=== PATIENT | female | born 1955 | race Two or more races ===

== ENCOUNTER 2024-06-02 05:43 | Inpatient (IN) | payer OTHER, MEDICAID ==
[~2024-06-02] VITALS: Ht 160 cm; Wt 85.1 kg
[2024-06-02 06:30] VITALS: PULSE 112; RESP 16; O2SAT 95
--- NOTE | 2024-06-02 06:43 | ED.PDOC ---
SOB-HPI HPI Comments 68Y F with PMHx HTN presents to ED for chief complaint SOB x1hr with chest pressure/heaviness and bilateral hand numbness/tingling. Pt states BP at home was 170/103 and then she took her BP meds at 0600. Upon ED arrival, BP was 119/64 and pt was in a fib. Pt was told she has an irregular HR by PCP and takes Aspirin. Pt is not on blood thinners. Pt states SOB feels better now but chest heaviness is still present. Pt denies alcohol, illicit drug, and tobacco use. Allergies include Cipro. Chief Complaint: Shortness of Breath Time Seen by MD: 06:27 Reviewed notes: Medications, Allergies Information Source: Patient Mode of Arrival: Ambulatory Severity: Mild Timing: Hours Duration: Since onset Context: At Rest PE Risk Factors: None History of: None Modifying Factors: Nothing Associated Signs and Symptoms: Chest Pain, Hands (numbness) Quality: Pressure, Heavy Radiation: No Radiation Location: Substernal Past Medical History PAST MEDICAL HISTORY: HTN Surgical History: Denies all surgeries COMPO CASTER History: Denies all COMPO CASTER Hx Family History Family History: Unknown Social History Smoker: Non-Smoker Alcohol: Denies ETOH Use Drugs: Denies Drug Use Lives In: Home Constitutional: denies: chills, diaphoresis, fatigue, fever, malaise, sweats, weakness, others EENTM: denies: blurred vision, double vision, ear bleeding, ear discharge, ear drainage, ear pain, ear ringing, eye pain, eye redness, hearing loss, mouth pain, mouth swelling, nasal discharge, nose bleeding, nose congestion, nose pain, photophobia, tearing, throat pain, throat swelling, voice changes, others Respiratory: reports: shortness of breath; denies: cough, hemoptysis, orthopnea, SOB at rest, SOB with excertion, stridor, wheezing, others Cardiovascular: reports: chest pain; denies: dizzy spells, diaphoresis, Dyspnea on exertion, edema, irregular heart beat, left arm pain, lightheadedness, palpitations, PND, syncope, others Gastrointestinal: denies: abdomen distended, abdominal pain, blood streaked bowels, constipated, diarrhea, dysphagia, difficulty swallowing, hematemesis, melena, nausea, poor appetite, poor fluid intake, rectal bleeding, rectal pain, vomiting, others Genitourinary: denies: abnormal vagina bleeding, burning, dyspareunia, dysuria, flank pain, frequency, hematuria, incontinence, pain, , vagina discharge, urgency, others Neurological: reports: numbness (bilteral hands); denies: dizziness, fainting, headache, left sided numbness, left sided weakness, paresthesia, pre-existing deficit, right sided numbness, right sided weakness, seizure, speech problems, tingling, tremors, weakness, others Musculoskeletal: denies: back pain, gout, joint pain, joint swelling, muscle pain, muscle stiffness, neck pain, others Integumetry: denies: bruises, change in color, change in hair/nails, dryness, laceration, lesions, lumps, rash, wounds, others Allergic/Immunocompromised: denies: Difficulty Healing, Frequent Infections, Hives, Itching, others Hematologic/Lymphatic: denies: anemia, blood clots, easy bleeding, easy bruising, swollen glands, others Endocrine: denies: excessive hunger, excessive sweating, excessive thirst, excessive urination, flushing, intolerance to cold, intolerance to heat, unexplained weight gain, unexplained weight loss, others Psychiatric: denies: anxiety, bipolar disorder, depression, hopeless, panic disorder, schizophrenia, sleepless, suicidal, others All Other Systems: Reviewed and Negative Physical Exam General Appearance: No Apparent Distress, Normal HEENT: Normal ENT Inspection, Pharynx Normal, TMs Normal Neck: Full Range of Motion, Non-Tender, Normal, Normal Inspection Respiratory: Chest Non-Tender, Lungs Clear, No Accessory Muscle Use, No Respiratory Distress, Normal Breath Sounds Cardiovascular: Irregular, No Edema, No JVD, No Murmur, No Gallop Breast Exam: Deferred Gastrointestinal: No Organomegaly, Non Tender, No Pulsatile Mass, Normal Bowel Sounds, Soft Genitalia: Deferred Pelvic: Deferred Rectal: Deferred Extremities: No calf tenderness, Normal capillary refill, Normal inspection, Normal range of motion, Non-tender, No pedal edema Musculoskeletal : Apperance: Normal Neurologic: Alert, 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 Was a procedure done?: No Differential Dx Differential Diagnosis: Anxiety, Asthma, Bronchitis, Cardiogenic Shock, CHF, COPD, Dysrhythmia, Hypertension, Hyperventilation, Hyponatremia, Myocardial infarction, Panic Attack, Pneumonia, Pneumothorax, PSVT, Pulmonary Embolism, Respiratory Distress, Other (arrhthmias) X-Ray, Labs, Meds, VS Vital Signs Date Time Temp Pulse Resp B/P (MAP) Pulse Ox O2 Delivery O2 Flow Rate FiO2 06/02/24 08:00 84 11 96 Room Air* 0 21 06/02/24 08:00 88 11 97/64 (75) 96 06/02/24 07:23 86 06/02/24 06:43 123 06/02/24 06:30 98.0 112 16 143/82 (102) 95 98.0 06/02/24 06:30 112 16 95 Room Air* 0 21 06/02/24 06:24 98.6 100 16 143/82 (102) 95 98.6 06/02/24 05:59 93 06/02/24 05:55 97.7 108 19 119/64 (82) 98 Lab Test 06/02/24 07:55 06/02/24 06:23 Range/Units Troponin I High Sensitivity Pending < 3 L </=34 ng/L White Blood Count 5.1 4.4-10.8 10^3/uL Red Blood Count 4.64 4.0-5.20 10^6/uL Hemoglobin 14.9 12.2-16.2 g/dL Hematocrit 43.9 36.0-46.0 % Mean Corpuscular Volume 94.4 80.0-100.0 fL Mean Corpuscular Hemoglobin 32.2 H 28.0-32.0 pg Mean Corpuscular Hemoglobin Concent 34.1 32.0-36.0 g/dL Red Cell Distribution Width 13.4 11.8-14.3 % Platelet Count 194 140-450 10^3/uL Mean Platelet Volume 10.0 6.9-10.8 fL Neutrophils (%) (Auto) 55.2 37.0-80.0 % Lymphocytes (%) (Auto) 31.4 10.0-50.0 % Monocytes (%) (Auto) 9.4 0.0-12.0 % Eosinophils (%) (Auto) 2.7 0.0-7.0 % Basophils (%) (Auto) 1.3 0.0-2.0 % Neutrophils # (Auto) 2.8 1.6-8.6 10 ^3/uL Lymphocytes # (Auto) 1.6 0.4-5.4 10 ^3/uL Monocytes # (Auto) 0.5 0-1.3 10 ^3/uL Eosinophils # (Auto) 0.1 0-0.8 10 ^3/uL Basophils # (Auto) 0.1 0-0.2 10 ^3/uL Nucleated Red Blood Cells 0.1 % Sodium Level 139 136-145 mmol/L Potassium Level 4.0 3.5-5.1 mmol/L Chloride Level 107 98-107 mmol/L Carbon Dioxide Level 25 20-31 mmol/L Anion Gap 7 5-15 Blood Urea Nitrogen 15 9-23 mg/dL Creatinine 0.59 0.550-1.02 mg/dL Glomerular Filtration Rate Calc 98 >90 mL/min BUN/Creatinine Ratio 25.4 H 10.0-20.0 Serum Glucose 112 H 74-106 mg/dL Calcium Level 10.4 8.7-10.4 mg/dL Current Medications Medications (Trade) Dose Ordered Sig/Pauline Route Start Time Stop Time Status Last Admin Enoxaparin Sodium (Lovenox) 90 mg ONCE ONCE SC 06/02/24 06:45 06/02/24 06:46 DC 06/02/24 07:02 Diltiazem HCl (Cardizem Injection) 15 mg ONCE ONCE IV 06/02/24 07:00 06/02/24 07:01 DC 06/02/24 07:02 Time of 1ST Reevaluation: 06:57 Reevaluation 1ST: Unchanged Time of 2ND Reevaluation: 07:07 Reevaluation 2ND: Improved (HR now afib 76, after cardizem) Time of 3RD Reevaluation: 08:15 Reevaluation 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 i assessed this patient, formulated a plan of care, communicated with medical personnel,reveiwed data and results,andconversed with recruiting and selection consultant, reassessed the patient's condition and response to treatments. total time includde at [facility] 50% face-face interactions and does not include any procedures Stability Stability form required: No Heart Score Heart Score: Heart Score Response (Comments) Value History Highly Suspicious 2 EKG Repolarization Disturb 1 Age >65 2 Risk Factors 1 or 2 risk factors 1 Troponin Normal limit 0 Total 6 I personally scribed for MARQUIS ARMAS MD ([email or web address]) on 06/02/24 at 06:43. Electronically submitted by La You ([email or web address]). MARQUIS ARMAS MD Jun 02, 2024 06:43
[2024-06-02 06:54] LABS: Basophils # (auto) 0.1 10 ^3/uL (0-0.2); Basophils % (auto) 1.3 % (0.0-2.0); Eosinophils # (auto) 0.1 10 ^3/uL (0-0.8); Eosinophils % (auto) 2.7 % (0.0-7.0); Hematocrit 43.9 % (36.0-46.0); Hemoglobin 14.9 g/dL (12.2-16.2); Lymphocytes # (auto) 1.6 10 ^3/uL (0.4-5.4); Lymphocytes % (auto) 31.4 % (10.0-50.0); Mean Corpuscular Hemoglobin 32.2 pg (28.0-32.0); Mean Corpuscular Hgb Conc. 34.1 g/dL (32.0-36.0); Mean Corpuscular Volume 94.4 fL (80.0-100.0); Monocytes # (auto) 0.5 10 ^3/uL (0-1.3); Monocytes % (auto) 9.4 % (0.0-12.0); Neutrophils # (auto) 2.8 10 ^3/uL (1.6-8.6); Neutrophils % (auto) 55.2 % (37.0-80.0); Nucleated Red Blood Cells % 0.1 %; Platelet Count (auto) 194 10^3/uL (140-450); Red Blood Cells 4.64 10^6/uL (4.0-5.20); Red Cell Distribution Width 13.4 % (11.8-14.3); White Blood Cell 5.1 10^3/uL (4.4-10.8)
[2024-06-02] MEDS: ENOXAPARIN SOD 100 MG/1 ML SYRINGE SC ONE (07:02)
[2024-06-02] MEDS: dilTIAZem 25 MG/5 ML VIAL IV ONE (07:02)
[2024-06-02 07:03] LABS: Chloride 107 mmol/L (98-107); Sodium 139 mmol/L (136-145)
[2024-06-02 07:04] LABS: Anion Gap 7 (5-15); Carbon Dioxide 25 mmol/L (20-31)
[2024-06-02 07:05] LABS: Calcium 10.4 mg/dL (8.7-10.4)
[2024-06-02 07:10] LABS: BUN/Creatinine Ratio 25.4 (10.0-20.0); Blood Urea Nitrogen 15 mg/dL (9-23); Glucose 112 mg/dL (74-106)
[2024-06-02 08:00] VITALS: PULSE 84; RESP 11; O2SAT 96
--- NOTE | 2024-06-02 08:46 | DVH ---
CHEST RADIOGRAPH Indication:sob Technique: Single frontal view of the chest was obtained Comparison: None FINDINGS: Lines and Tubes: None Lungs: No focal consolidation. Pleura: No effusion. No pneumothorax. Cardiomediastinal contours: Unremarkable Bones: No acute osseous abnormality. IMPRESSION: 1. No acute cardiopulmonary disease.
[2024-06-02] MEDS ORDERED: HYDROcodone-ACET 5/325MG TAB PO PRN (10:45)
[2024-06-02] MEDS ORDERED: MORPHINE SULFATE INJ 2 MG/ml SYRG IV PRN ×2 (10:45)
[2024-06-02] MEDS ORDERED: ONDANSETRON HCL 4 MG/2 ML VIAL IV PRN (10:45)
[2024-06-02] MEDS ORDERED: NITROGLYCERIN 0.4 MG SL TAB SL PRN (10:45)
[2024-06-02] MEDS ORDERED: ASPI-325 PO (10:50)
[2024-06-02] MEDS ORDERED: AMLO1TAB21 PO (10:50)
[2024-06-02] MEDS ORDERED: ATOR20TA50 PO (10:50)
[2024-06-02] MEDS ORDERED: HYDR25TA5 PO (10:50)
[2024-06-02] MEDS ORDERED: LOS25T PO (10:50)
--- NOTE | 2024-06-02 10:56 | DVHHP2 ---
History of Present Illness Reason for Visit: Shortness of breath History of Present Illness This 68 year old female presents in the ED with a chief complaint of chest pressure pain associated with shortness of breath, bilateral hand numbness and tingling that started this morning. The patient reports symptoms is associated with palpitations and uncontrolled BP leading to ED visit. past medical history of hypertension and atrial fibrillation. The patient reports under cardiology care of Dr. Holden Cardona. She had a nuclear test six years ago with normal findings. Past Medical History As stated in HPI Past Surgical History Denies Family History Reviewed, non-contributory to the management of this case. Past Social History The patient lives at home, denies smoking, alcohol or illicit drugs abuse. Review of Systems Constitutional: Yes: Malaise; No: Fever, Chills, Sweats, Weakness, Other Eyes: No: Pain, Vision change, Conjunctivae inflammation, Eyelid inflammation, Other, Redness ENT: No: Ear pain, Ear discharge, Nose pain, Nose discharge, Nose congestion, Mouth pain, Mouth swelling, Throat pain, Throat swelling, Other Respiratory: Shortness of breath; No: Cough, Dry, SOB with excertion, Wheezing, Hemoptysis, Pleuritic Pain, Sputum, Wheezing, Other Cardiovascular: Chest Pain, Palpitations; No: Orthopnea, Paroxysmal Noc. Dyspnea, Edema, Lt Headedness, Other Gastrointestinal: No: Nausea, Vomiting, Abdominal Pain, Diarrhea, Constipation, Melena, Hematochezia, Other Genitourinary: No Dysuria, No Frequency, No Incontinence, No Hematuria, No Retention, No Other Musculoskeletal: No: other, neck pain, shoulder pain, arm pain, back pain, hand pain, leg pain, foot pain Skin: No: Rash, Lesions, Jaundice, Bruising, Other Neurological: No: Weakness, Numbness, Incoordination, Change in speech, Confusion, Seizures, Other Allergies: Coded Allergies: Ciprofloxacin (Verified Allergy, Unknown, 06/02/24) Medications Current Medications Medications Dose Ordered Sig/Pauline Route Start Time Stop Time Status Last Admin Dose Admin Acetaminophen/ Hydrocodone Bitart 1 tab Q4HP PRN PO 06/02/24 10:45 UNV Ondansetron HCl 4 mg Q4HP PRN IV 06/02/24 10:45 UNV Enoxaparin Sodium 40 mg DAILY SC 06/03/24 10:00 UNV Morphine Sulfate 2 mg Q4HPRN PRN IV 06/02/24 10:45 UNV Nitroglycerin 0.4 mg Q5MINP PRN SL 06/02/24 10:45 UNV Morphine Sulfate 2 mg Q30M PRN IV 06/02/24 10:45 UNV Exam Vital Signs Vital Signs Date Time Temp Pulse Resp B/P (MAP) Pulse Ox O2 Delivery O2 Flow Rate FiO2 06/02/24 10:32 63 13 101/51 (68) 96 06/02/24 08:00 Room Air* 0 21 06/02/24 06:30 98.0 98.0 General Appearance: Alert, Oriented X3, mild distress HEENT: Atraumatic, PERRLA, EOMI Respiratory: Clear to auscultation, Normal air movement Cardiovascular: Other (Atrial fibrillation rate is controlled) Abdominal: Normal bowel sounds, Soft, No tenderness Extremities: No clubbing, No cyanosis, No edema, Normal pulses Skin: No rashes, No breakdown, No significant lesion Neuro: Normal gait, Normal speech, Strength at 5/5 X4 ext, Normal tone Psych/Mental Status: Mental status NL Labs/Xrays Labs Test 06/02/24 09:40 06/02/24 06:23 Range/Units Troponin I High Sensitivity < 3 L </=34 ng/L White Blood Count 5.1 4.4-10.8 10^3/uL Red Blood Count 4.64 4.0-5.20 10^6/uL Hemoglobin 14.9 12.2-16.2 g/dL Hematocrit 43.9 36.0-46.0 % Mean Corpuscular Volume 94.4 80.0-100.0 fL Mean Corpuscular Hemoglobin 32.2 H 28.0-32.0 pg Mean Corpuscular Hemoglobin Concent 34.1 32.0-36.0 g/dL Red Cell Distribution Width 13.4 11.8-14.3 % Platelet Count 194 140-450 10^3/uL Mean Platelet Volume 10.0 6.9-10.8 fL Neutrophils (%) (Auto) 55.2 37.0-80.0 % Lymphocytes (%) (Auto) 31.4 10.0-50.0 % Monocytes (%) (Auto) 9.4 0.0-12.0 % Eosinophils (%) (Auto) 2.7 0.0-7.0 % Basophils (%) (Auto) 1.3 0.0-2.0 % Neutrophils # (Auto) 2.8 1.6-8.6 10 ^3/uL Lymphocytes # (Auto) 1.6 0.4-5.4 10 ^3/uL Monocytes # (Auto) 0.5 0-1.3 10 ^3/uL Eosinophils # (Auto) 0.1 0-0.8 10 ^3/uL Basophils # (Auto) 0.1 0-0.2 10 ^3/uL Nucleated Red Blood Cells 0.1 % Sodium Level 139 136-145 mmol/L Potassium Level 4.0 3.5-5.1 mmol/L Chloride Level 107 98-107 mmol/L Carbon Dioxide Level 25 20-31 mmol/L Anion Gap 7 5-15 Blood Urea Nitrogen 15 9-23 mg/dL Creatinine 0.59 0.550-1.02 mg/dL Glomerular Filtration Rate Calc 98 >90 mL/min BUN/Creatinine Ratio 25.4 H 10.0-20.0 Serum Glucose 112 H 74-106 mg/dL Calcium Level 10.4 8.7-10.4 mg/dL PROCEDURE(s): CXRP - CHEST PORTABLE REASON: sob ORDER NUMBER(s): [id number], ACCESSION NUMBER(s): [id number] CHEST RADIOGRAPH Indication:sob Technique: Single frontal view of the chest was obtained Comparison: None FINDINGS: Lines and Tubes: None Lungs: No focal consolidation. Pleura: No effusion. No pneumothorax. Cardiomediastinal contours: Unremarkable Bones: No acute osseous abnormality. IMPRESSION: 1. No acute cardiopulmonary disease. Assessment/Plan Assessment/Plan # AFib with RVR, now rate is controlled Admit to telemetry unit Rate control with metoprolol 50mg bid Chads Vasc score 3 - therapeutic Lovenox Cardiology consult with Dr. Dulce Maria Cardona Monitor electrolytes and replete as needed Check TSH # rule out ACS asa, statins Chest pain protocol Echo Card consult # hypertension Continue with amlodipine, losartan, hctz Check lipid panel # obesity Lifestyle modification counseled with diet and regular exercise DVT prophylaxis Plan discussed with: Patient My Orders Orders - JARED YOUNG Procedure Category Date Status Time Admit ADMIT 06/02/24 Transmitted 10:45 Code Status CODE 06/02/24 Transmitted 10:45 Hydrocodone-Acet PHA 06/02/24 Logged 5/325mg Tab ([place] 10:45 Ondansetron Hcl PHA 06/02/24 Logged (Zofran) 10:45 Enoxaparin Sodium PHA 06/03/24 Logged (Lovenox) 10:00 Complete Blood Count LAB 06/03/24 Verified 04:00 Comprehensive LAB 06/03/24 Verified Metabolic Panel 04:00 Cardiac DIET 06/02/24 Transmitted Diet-2gna,Lofat,Lochol Lunch Echo 2d Mode Cardiac US 06/02/24 Logged DOP 10:45 Condition: Fair KIRAN 06/02/24 In Process 10:45 Morphine Sulfate PHA 06/02/24 Logged Injection 10:45 Nitroglycerin PHA 06/02/24 Logged Sublingual (Ntrostat 10:45 Morphine Sulfate PHA 06/02/24 Logged Injection 10:45 Stat Ekg For Chest KIRAN 06/02/24 In Process Pain 10:45 Notify Md Of Changes KIRAN 06/02/24 In Process From Base 10:45 Valve Pipe Irrigator For KIRAN 06/02/24 In Process 24 Hours 10:45 Emergency Dysrhythmia KIRAN 06/02/24 In Process Protocol 10:45 Rhythm Strips Once KIRAN 06/02/24 In Process Every Shift 10:45 Oxygen By Nasal RT 06/02/24 Transmitted Cannula 10:45 * Cardiology Consult CONS 06/02/24 Transmitted 10:45 Date of Service: Jun 02, 2024 Billing Provider: JARED YOUNG Common Visit Codes: [id number] INP/OBS CARE (HIGH) JARED YOUNG Jun 02, 2024 10:56
[2024-06-02] MEDS: METOPROLOL TARTRATE 50 MG TAB PO ONE (11:08)
[2024-06-02 11:37] LABS: Partial Thromboplastin Time 31.3 SEC (24.5-34.5); Prothrombin Time 10.6 sec (9.3-11.8)
[2024-06-02] MEDS: MAGNESIUM SULFATE 1GM/100ML 100 ML IV ONE (12:20)
--- NOTE | 2024-06-02 13:43 | DVHINCON2 ---
Date of service: Jun 02, 2024 Referring Physician Luz Reason for Consultation A-fib RVR History of Present Illness This is a 68 year old female with a PMH of HTN who presented to the ED with a complaints of chest pressure pain associated with shortness of breath, bilateral hand numbness and tingling that started this morning. The patient reports symptoms is associated with palpitations and uncontrolled BP leading to ED visit. Patient states she took her BP at home and the reading was 170/103 and then she took her BP medications at 6am this morning. Upon arrival the patients BP was improved at 119/64 and was in a fib. EKG shows A Fib at 123. Patient denies taking blood thinners. TROP x3 is negative. Chest x-ray shows NAD. Patient was admitted to the hospital. I am asked to consult on this patient. Allergies: Coded Allergies: Ciprofloxacin (Verified Allergy, Unknown, 06/02/24) Home Meds Reported Medications Aspirin (Aspirin Low Dose) 81 Mg Tab, 1 TAB PO DAILY 06/02/24 Hctz (Hydrochlorothiazide) 25 Mg Tab, 1 TAB PO DAILY 06/02/24 Losartan Potassium (Losartan Potassium) 25 Mg Tab, 1 TAB PO DAILY 06/02/24 Atorvastatin Calcium (ATORVASTATIN CALCIUM) 20 Mg Tab, 1 TAB PO DAILY 06/02/24 Amlodipine Besylate (Amlodipine Besylate) 2.5 Mg Tab, 1 TAB PO DAILY 06/02/24 Current Medications Current Medications Medications (Trade) Dose Ordered Sig/Pauline Route PRN Reason Start Time Stop Time Status Last Admin Acetaminophen/ Hydrocodone Bitart ([place] 5/325MG Tab) 1 tab Q4HP PRN PO MODERATE PAIN (4-6 PAIN SCALE) 06/02/24 10:45 Ondansetron HCl (Zofran) 4 mg Q4HP PRN IV NAUSEA / VOMITING 06/02/24 10:45 Enoxaparin Sodium (Lovenox) 40 mg DAILY SC 06/03/24 10:00 06/02/24 11:00 DC Morphine Sulfate 2 mg Q4HPRN PRN IV SEVERE PAIN (7-10 PAIN SCALE) 06/02/24 10:45 Nitroglycerin (Ntrostat Sublingual) 0.4 mg Q5MINP PRN SL FOR CHEST PAIN 06/02/24 10:45 Morphine Sulfate 2 mg Q30M PRN IV FOR CHEST PAIN 06/02/24 10:45 Aspirin (Ecotrin Enteric Coated Tablet) 81 mg DAILY PO 06/03/24 10:00 Atorvastatin Calcium (Lipitor) 20 mg DAILY PO 06/03/24 10:00 Hydrochlorothiazide (hydroCHLOROthiazide TABLET) 25 mg DAILY PO 06/03/24 10:00 Losartan Potassium (Cozaar Tablet) 25 mg DAILY PO 06/03/24 10:00 Amlodipine Besylate (Norvasc Tablet) 2.5 mg DAILY PO 06/03/24 10:00 Metoprolol Tartrate (Lopressor Tablet) 50 mg BID PO 06/02/24 22:00 Enoxaparin Sodium (Lovenox) 90 mg Q12HR SC 06/02/24 22:00 Review of Systems Constitutional: denies: chills, diaphoresis, fatigue, fever, malaise, sweats, weakness, others EENTM: denies: blurred vision, double vision, ear bleeding, ear discharge, ear drainage, ear pain, ear ringing, eye pain, eye redness, hearing loss, mouth p ain, mouth swelling, nasal discharge, nose bleeding, nose congestion, nose pain, photophobia, tearing, throat pain, throat swelling, voice changes, others Respiratory: reports: shortness of breath; denies: cough, hemoptysis, orthopnea, SOB at rest, SOB with excertion, stridor, wheezing, others Cardiovascular: reports: chest pain; denies: dizzy spells, diaphoresis, Dyspnea on exertion, edema, irregular heart beat, left arm pain, lightheadedness, palpitations, PND, syncope, others Gastrointestinal: denies: abdomen distended, abdominal pain, blood streaked bowels, constipated, diarrhea, dysphagia, difficulty swallowing, hematemesis, melena, nausea, poor appetite, poor fluid intake, rectal bleeding, rectal pain, vomiting, others Genitourinary: denies: abnormal vagina bleeding, burning, dyspareunia, dysuria, flank pain, frequency, hematuria, incontinence, pain, , vagina discharg e, urgency, others Neurological: reports: numbness (bilateral hands); denies: dizziness, fainting, headache, left sided numbness, left sided weakness, paresthesia, pre-existing deficit, right sided numbness, right sided weakness, seizure, speech problems, tingling, tremors, weakness, others Musculoskeletal: denies: back pain, gout, joint pain, joint swelling, muscle pain, muscle stiffness, neck pain, others Integumetry: denies: bruises, change in color, change in hair/nails, dryness, laceration, lesions, lumps, rash, wounds, others Allergic/Immunocompromised: denies: Difficulty Healing, Frequent Infections, Hives, Itching, others Hematologic/Lymphatic: denies: anemia, blood clots, easy bleeding, easy bruising, swollen glands, others Endocrine: denies: excessive hunger, excessive sweating, excessive thirst, excessive urination, flushing, intolerance to cold, intolerance to heat, unexplained weight gain, unexplained weight loss, others Psychiatric: denies: anxiety, bipolar disorder, depression, hopeless, panic disorder, schizophrenia, sleepless, suicidal, others All Other Systems: Reviewed and Negative Vital Signs Vital Signs Date Time Temp Pulse Resp B/P (MAP) Pulse Ox O2 Delivery O2 Flow Rate FiO2 06/02/24 12:00 60 06/02/24 10:32 13 101/51 (68) 96 06/02/24 08:00 Room Air* 0 21 06/02/24 06:30 98.0 98.0 Physical Exam GENERAL: Awake, alert, oriented. Obese. LUNGS: Clear. CARDIOVASCULAR: Heart sounds are good. ABDOMEN: Soft. Labs/Diagnostic Data Labs Test 06/02/24 09:40 06/02/24 07:55 06/02/24 06:23 Range/Units Troponin I High Sensitivity < 3 L </=34 ng/L Prothrombin Time 10.6 9.3-11.8 sec Prothrombin Time INR 1.00 0.9-1.15 Activated Partial Thromboplast Time 31.3 24.5-34.5 SEC White Blood Count 5.1 4.4-10.8 10^3/uL Red Blood Count 4.64 4.0-5.20 10^6/uL Hemoglobin 14.9 12.2-16.2 g/dL Hematocrit 43.9 36.0-46.0 % Mean Corpuscular Volume 94.4 80.0-100.0 fL Mean Corpuscular Hemoglobin 32.2 H 28.0-32.0 pg Mean Corpuscular Hemoglobin Concent 34.1 32.0-36.0 g/dL Red Cell Distribution Width 13.4 11.8-14.3 % Platelet Count 194 140-450 10^3/uL Mean Platelet Volume 10.0 6.9-10.8 fL Neutrophils (%) (Auto) 55.2 37.0-80.0 % Lymphocytes (%) (Auto) 31.4 10.0-50.0 % Monocytes (%) (Auto) 9.4 0.0-12.0 % Eosinophils (%) (Auto) 2.7 0.0-7.0 % Basophils (%) (Auto) 1.3 0.0-2.0 % Neutrophils # (Auto) 2.8 1.6-8.6 10 ^3/uL Lymphocytes # (Auto) 1.6 0.4-5.4 10 ^3/uL Monocytes # (Auto) 0.5 0-1.3 10 ^3/uL Eosinophils # (Auto) 0.1 0-0.8 10 ^3/uL Basophils # (Auto) 0.1 0-0.2 10 ^3/uL Nucleated Red Blood Cells 0.1 % Sodium Level 139 136-145 mmol/L Potassium Level 4.0 3.5-5.1 mmol/L Chloride Level 107 98-107 mmol/L Carbon Dioxide Level 25 20-31 mmol/L Anion Gap 7 5-15 Blood Urea Nitrogen 15 9-23 mg/dL Creatinine 0.59 0.550-1.02 mg/dL Glomerular Filtration Rate Calc 98 >90 mL/min BUN/Creatinine Ratio 25.4 H 10.0-20.0 Serum Glucose 112 H 74-106 mg/dL Hemoglobin A1c 5.7 <5.7 % A1C Calcium Level 10.4 8.7-10.4 mg/dL Assessment AFib with RVR. HTN. Obesity. Plan/Recommendation I agree with your ongoing assessment and care of plan. Echocardiogram. Morphine and [place] for pain management. Amlodipine, Losartan. Aspirin, Lipitor, Metoprolol. DVT prophylactics. Additional plan as per the hospital course. A total of 45 minutes was spent reviewing the patient record, examining the patient, making a diagnostic and therapeutic plan, discussing this plan with medical personnel, following up on diagnostic studies and following the patient for clinical stability excluding any and all procedures. At least 50% of this time was spent in direct, [id number] contact. Plan discussed with: Patient DORIE GALVAN MD Jun 02, 2024 13:13
[2024-06-02 14:02] LABS: Urine Bacteria None Seen /hpf (None Seen)
[2024-06-02 14:16] LABS: Urine Blood Negative /uL (Negative); Urine Clarity Clear (Clear); Urine Color Colorless (Yellow); Urine Protein, UAD Negative (Negative); Urine Specific Gravity 1.004 (1.001-1.035); Urine Urobilinogen Normal (Negative); Urine WBC 4 /hpf (0 - 5); Urine pH 6.5 (5.0-9.0)
[2024-06-02 14:37] LABS: Magnesium 2.6 mg/dL (1.6-2.6)
[2024-06-02 20:15] VITALS: PULSE 60; RESP 20; O2SAT 94
[2024-06-02 21:12] VITALS: BP 116/61; PULSE 61; RESP 18; TEMP 98.1; O2SAT 96
[2024-06-02 21:14] VITALS: BP_SYST 116; PULSE 61; RESP 18; TEMP 98.1; O2SAT 96
[2024-06-02] MEDS: METOPROLOL TARTRATE 50 MG TAB PO SCH (21:41)
[2024-06-02] MEDS: ENOXAPARIN SOD 100 MG/1 ML SYRINGE SC SCH (21:42)
[2024-06-03 05:00] VITALS: BP 114/66; PULSE 61; RESP 20; TEMP 97.9; O2SAT 100
[2024-06-03 07:13] LABS: Alanine Aminotransferase 33 U/L (7-40); Alkaline Phosphatase 44 U/L (46-116); Anion Gap 6 (5-15); Aspartate Aminotransferase 16 U/L (13-40); Basophils # (auto) 0 10 ^3/uL (0-0.2); Basophils % (auto) 0.8 % (0.0-2.0); Bilirubin, Total 0.5 mg/dL (0.2-1.0); Blood Urea Nitrogen 14 mg/dL (9-23); Calcium 9.6 mg/dL (8.7-10.4); Carbon Dioxide 28 mmol/L (20-31); Chloride 109 mmol/L (98-107); Eosinophils # (auto) 0.1 10 ^3/uL (0-0.8); Eosinophils % (auto) 2.9 % (0.0-7.0); Glucose 93 mg/dL (74-106); Hematocrit 41.1 % (36.0-46.0); Hemoglobin 13.9 g/dL (12.2-16.2); Lymphocytes % (auto) 41.6 % (10.0-50.0); Mean Corpuscular Hemoglobin 32.2 pg (28.0-32.0); Mean Corpuscular Hgb Conc. 33.8 g/dL (32.0-36.0); Mean Corpuscular Volume 95.2 fL (80.0-100.0); Monocytes # (auto) 0.5 10 ^3/uL (0-1.3); Monocytes % (auto) 10.2 % (0.0-12.0); Neutrophils # (auto) 2.1 10 ^3/uL (1.6-8.6); Neutrophils % (auto) 44.5 % (37.0-80.0); Nucleated Red Blood Cells % 0.4 %; Platelet Count (auto) 194 10^3/uL (140-450); Red Blood Cells 4.31 10^6/uL (4.0-5.20); Red Cell Distribution Width 13.2 % (11.8-14.3); Sodium 143 mmol/L (136-145); Total Protein 6.6 g/dL (5.7-8.2); White Blood Cell 4.7 10^3/uL (4.4-10.8)
[2024-06-03 08:00] VITALS: PULSE 54; O2SAT 97
--- NOTE | 2024-06-03 09:15 | DVHPN2 ---
Progress Note - Dictate Date Seen: Jun 03, 2024 Medical Necessity Reason Pt with a Central, PICC or Fol: No Subjective Patient was seen and evaluated in follow up. Patient reports improvement in chest pain. Triglycerides 240, Chol 232, LDL 146. HDL is WNL at 48. TSH 3.68. Echocardiogram is ordered. vital signs Vital Sign Date Time Temp Pulse Resp B/P (MAP) Pulse Ox O2 Delivery O2 Flow Rate FiO2 06/03/24 05:00 97.9 61 20 114/66 (82) 100 97.9 06/02/24 21:13 Room Air* 0 21 Total Intake and Output 06/02/24 06/02/24 06/03/24 15:00 23:00 07:00 Intake Total 100 ml 240 ml Balance 100 ml 240 ml medications Current Medications Medications Dose Ordered Sig/Pauline Route Start Time Stop Time Status Last Admin Dose Admin Acetaminophen/ Hydrocodone Bitart 1 tab Q4HP PRN PO 06/02/24 10:45 Ondansetron HCl 4 mg Q4HP PRN IV 06/02/24 10:45 Morphine Sulfate 2 mg Q4HPRN PRN IV 06/02/24 10:45 Nitroglycerin 0.4 mg Q5MINP PRN SL 06/02/24 10:45 Morphine Sulfate 2 mg Q30M PRN IV 06/02/24 10:45 Aspirin 81 mg DAILY PO 06/03/24 10:00 Atorvastatin Calcium 20 mg DAILY PO 06/03/24 10:00 Hydrochlorothiazide 25 mg DAILY PO 06/03/24 10:00 Losartan Potassium 25 mg DAILY PO 06/03/24 10:00 Amlodipine Besylate 2.5 mg DAILY PO 06/03/24 10:00 Metoprolol Tartrate 50 mg BID PO 06/02/24 22:00 06/02/24 21:41 50 MG Enoxaparin Sodium 90 mg Q12HR SC 06/02/24 22:00 06/02/24 21:42 90 MG objective GENERAL: Awake, alert, oriented. Obese. LUNGS: Clear. CARDIOVASCULAR: Heart sounds are good. ABDOMEN: Soft. laboratory and microbiology Laboratory Tests 06/03/24 06:10 Test 06/03/24 06:10 Range/Units Serum Glucose 93 74-106 mg/dL Problem List AFib with RVR. HTN. Obesity. Assessment/Plan Continued all current supportive medical care. Echocardiogram. Morphine and [place] for pain management. Amlodipine, Losartan. Aspirin, Lipitor, Metoprolol. DVT prophylactics. Additional plan as per the hospital course. Plan discussed with: Patient DORIE GALVAN MD Jun 03, 2024 09:15
[2024-06-03 09:22] VITALS: BP 122/73; PULSE 59; RESP 20; TEMP 98.1; O2SAT 95
[2024-06-03] MEDS ORDERED: ENOXAPARIN SOD 40 MG/0.4 ML SYRINGE SC SCH (10:00)
[2024-06-03] MEDS ORDERED: ASPirin-EC 81 mg tab PO SCH (10:00)
[2024-06-03] MEDS ORDERED: amLODIPine BESYLATE 5 MG TAB PO SCH (10:00)
--- NOTE | 2024-06-03 10:23 | DVHPN2 ---
Progress Note Date Seen: Jun 03, 2024 Medical Necessity Reason Pt with a Central, PICC or Fol: No Subjective Patient reports: No new complaints Review of Systems: HEENT:Normal, CVS:Normal, RESPIRATORY:Normal, GI:Normal, :Normal, MSK:Normal, NEURO:Normal Objective vital signs Vital Sign Date Time Temp Pulse Resp B/P (MAP) Pulse Ox O2 Delivery O2 Flow Rate FiO2 06/03/24 09:22 98.1 59 20 122/73 (89) 95 98.1 06/02/24 21:13 Room Air* 0 21 Total Intake and Output 06/02/24 06/02/24 06/03/24 15:00 23:00 07:00 Intake Total 100 ml 240 ml Balance 100 ml 240 ml medications Current Medications Medications Dose Ordered Sig/Pauline Route Start Time Stop Time Status Last Admin Dose Admin Acetaminophen/ Hydrocodone Bitart 1 tab Q4HP PRN PO 06/02/24 10:45 Ondansetron HCl 4 mg Q4HP PRN IV 06/02/24 10:45 Morphine Sulfate 2 mg Q4HPRN PRN IV 06/02/24 10:45 Nitroglycerin 0.4 mg Q5MINP PRN SL 06/02/24 10:45 Morphine Sulfate 2 mg Q30M PRN IV 06/02/24 10:45 Aspirin 81 mg DAILY PO 06/03/24 10:00 Atorvastatin Calcium 20 mg DAILY PO 06/03/24 10:00 Hydrochlorothiazide 25 mg DAILY PO 06/03/24 10:00 Losartan Potassium 25 mg DAILY PO 06/03/24 10:00 Amlodipine Besylate 2.5 mg DAILY PO 06/03/24 10:00 Metoprolol Tartrate 50 mg BID PO 06/02/24 22:00 06/02/24 21:41 50 MG Enoxaparin Sodium 90 mg Q12HR SC 06/02/24 22:00 06/02/24 21:42 90 MG Examination: GENERAL:Normal, HEENT:Normal, NECK:Normal, LUNGS:Normal, CVS:Normal, ABDOMEN:Normal, MSK:Normal, SKIN:Normal, NEURO:Normal, :Normal laboratory and microbiology Laboratory Tests 06/03/24 06:10 Test 06/03/24 06:10 Range/Units Serum Glucose 93 74-106 mg/dL Problem List/Assessment/Plan Problem List/Assessment/Plan #1 a fib with rvr: cont meds, eliquis #2 htn: monitor #3 hyperlipidemia: lipitor #4 obesity #5 depression advance care planning- full code-time spent 19 mins Plan discussed with: Patient, Spouse My Orders My Orders Orders - HELENA SHEPHERD MD Procedure Category Date Status Time Apixaban (Eliquis) PHA 06/03/24 Verified 22:00 Date of Service: Jun 03, 2024 Billing Provider: HELENA SHEPHERD MD Common Visit Codes: [id number] INP/OBS CARE(HIGH) Secondary Visit Codes: [id number] CARE PLAN 30 MINUTES HELENA SHEPHERD MD Jun 03, 2024 10:23
--- NOTE | 2024-06-03 10:52 | ECG ---
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
[2024-06-03] MEDS: ATORVASTATIN 20 MG TAB PO SCH (11:14)
[2024-06-03] MEDS: hydroCHLOROthiazide 25 MG TAB PO SCH (11:14)
[2024-06-03] MEDS: LOSARTAN POTASSIUM 25 MG TAB PO SCH (11:15)
[2024-06-03] MEDS: CITALOPRAM HYDROBR 20 MG TAB PO ONE (11:16)
--- NOTE | 2024-06-03 12:23 | ECG ---
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
[2024-06-03 17:21] VITALS: BP 114/66; PULSE 74; RESP 17; TEMP 97.9; O2SAT 95
[2024-06-03 20:00] VITALS: PULSE 62
[2024-06-03 21:00] VITALS: BP 111/59; PULSE 62; RESP 20; TEMP 98.1; O2SAT 96
[2024-06-03] MEDS: APIXABAN 5 MG TAB PO SCH (22:07)
[2024-06-04 05:00] VITALS: BP 112/58; PULSE 57; RESP 20; TEMP 98.2; O2SAT 94
[2024-06-04 07:30] VITALS: PULSE 55; RESP 16; O2SAT 94
[2024-06-04 09:00] VITALS: BP 127/64; PULSE 55; RESP 16; TEMP 98.1; O2SAT 94
--- NOTE | 2024-06-04 10:42 | DVHDS2 ---
Discharge Summary Date of Admission Jun 02, 2024 at 10:45 Date of Discharge: Jun 04, 2024 Labs/Diagnostic Data: Laboratory Results Test 06/03/24 06:10 06/02/24 13:20 06/02/24 09:40 06/02/24 07:55 White Blood Count 4.7 10^3/uL (4.4-10.8) Red Blood Count 4.31 10^6/uL (4.0-5.20) Hemoglobin 13.9 g/dL (12.2-16.2) Hematocrit 41.1 % (36.0-46.0) Mean Corpuscular Volume 95.2 fL (80.0-100.0) Mean Corpuscular Hemoglobin 32.2 pg (28.0-32.0) Mean Corpuscular Hemoglobin Concent 33.8 g/dL (32.0-36.0) Red Cell Distribution Width 13.2 % (11.8-14.3) Platelet Count 194 10^3/uL (140-450) Mean Platelet Volume 9.8 fL (6.9-10.8) Neutrophils (%) (Auto) 44.5 % (37.0-80.0) Lymphocytes (%) (Auto) 41.6 % (10.0-50.0) Monocytes (%) (Auto) 10.2 % (0.0-12.0) Eosinophils (%) (Auto) 2.9 % (0.0-7.0) Basophils (%) (Auto) 0.8 % (0.0-2.0) Neutrophils # (Auto) 2.1 10 ^3/uL (1.6-8.6) Lymphocytes # (Auto) 2.0 10 ^3/uL (0.4-5.4) Monocytes # (Auto) 0.5 10 ^3/uL (0-1.3) Eosinophils # (Auto) 0.1 10 ^3/uL (0-0.8) Basophils # (Auto) 0 10 ^3/uL (0-0.2) Nucleated Red Blood Cells 0.4 % Sodium Level 143 mmol/L (136-145) Potassium Level 4.0 mmol/L (3.5-5.1) Chloride Level 109 mmol/L (98-107) Carbon Dioxide Level 28 mmol/L (20-31) Anion Gap 6 (5-15) Blood Urea Nitrogen 14 mg/dL (9-23) Creatinine 0.56 mg/dL (0.550-1.02) Glomerular Filtration Rate Calc 99 mL/min (>90) BUN/Creatinine Ratio 25.0 (10.0-20.0) Serum Glucose 93 mg/dL (74-106) Calcium Level 9.6 mg/dL (8.7-10.4) Total Bilirubin 0.5 mg/dL (0.2-1.0) Aspartate Amino Transferase (AST) 16 U/L (13-40) Alanine Aminotransferase (ALT) 33 U/L (7-40) Alkaline Phosphatase 44 U/L (46-116) Total Protein 6.6 g/dL (5.7-8.2) Albumin 4.0 g/dL (3.2-4.8) Magnesium Level 2.6 mg/dL (1.6-2.6) Triglycerides Level 240 mg/dL (< 150) Cholesterol Level 232 mg/dL (< 200) LDL Cholesterol 146 mg/dL (< 100) HDL Cholesterol 48 mg/dL (40-59) Thyroid Stimulating Hormone (TSH) 3.68 uIU/mL (0.55-4.78) Troponin I High Sensitivity < 3 ng/L (</=34) Prothrombin Time 10.6 sec (9.3-11.8) Prothrombin Time INR 1.00 (0.9-1.15) Activated Partial Thromboplast Time 31.3 SEC (24.5-34.5) Test 06/02/24 06:57 06/02/24 06:23 Urine Color Colorless (Yellow) Urine Clarity Clear (Clear) Urine pH 6.5 (5.0-9.0) Urine Specific [place] 1.004 (1.001-1.035) Urine Protein Negative (Negative) Urine Ketones Negative (Negative) Urine Blood Negative /uL (Negative) Urine Nitrite Negative (Negative) Urine Bilirubin Negative (Negative) Urine Urobilinogen Normal mg/dL (Negative) Urine Leukocyte Esterase 1+ /uL (Negative) Urine RBC <1 /hpf (0 - 4) Urine WBC 4 /hpf (0 - 5) Urine Squamous Epithelial Cells Few /hpf (<5) Urine Bacteria None seen /hpf (None Seen) Urine Glucose Normal mg/dL (Normal) Hemoglobin A1c 5.7 % A1C (<5.7) Other Laboratory Tests 06/03/24 06:10 Brief Hx & Hospital Course: see dictated note Condition at Discharge: Fair Final Diagnosis/Problems List a fib Discharge Disposition: Home Discharge Instruct/Medications Diet: Cardiac 2g Na,low cholest Activity: No Restrictions, As Tolerated Follow Up/Referral: fu with dr Dulce Maria Cardona Medications: resume home meds except amlodipine script to pharmacy Discharge Statement: "Patient was advised to return to the ER or call 911 if any headaches, dizziness, shortness of breath, chest pain, abdominal pain, bleeding, fevers, or worsening of medical condition. Patient was counseled about treatment plan, medications, possible side effects, patientverbalized understanding. All questions were answered to the best of my ability. This discharge took greater then 30 minutes in planning, reviewing documentation, counseling the patient, and discussing with other team members." ASSESSMENT ASSESSMENT Assessment a fib Date of Service: Jun 04, 2024 Billing Provider: HELENA SHEPHERD MD Common Visit Codes: 84615-OFU/OBS DISCH DAY >30min HELENA SHEPHERD MD Jun 04, 2024 10:42
[2024-06-04] MEDS ORDERED: APIX5TAB PO (10:43)
[2024-06-04] MEDS ORDERED: MET50T PO (10:43)
[2024-06-04] MEDS ORDERED: ATOR-507 PO (10:55)
[2024-06-04] MEDS: CITALOPRAM HYDROBR 20 MG TAB PO SCH (10:56)
--- NOTE | 2024-06-04 11:08 | DVHDS ---
DATE OF DISCHARGE: 06/04/2024 HISTORY OF PRESENT ILLNESS: The patient is a 68-year-old lady who was admitted with complaints of shortness of breath, tingling, numbness and palpitation. The patient has previous history of hypertension and hyperlipidemia. HOSPITAL COURSE: The patient was seen in Cardiology consult by Dr. Holden Cardona. The patient's lipid was elevated with a HDL of 146. The patient had a TSH that was within normal limits. Echocardiogram reading is currently pending. The patient's heart rate is now under control. She will be discharged home to resume home medications except for amlodipine and also to be on Lopressor 50 mg p.o. b.i.d. and Eliquis 5 mg b.i.d. She will follow up with Dr. Holden Cardona in 1 week. FINAL DIAGNOSES: Therefore, * Atrial fibrillation with rapid ventricular rate with secondary hypercoagulable state. * Hypertension. * Hyperlipidemia. * Obesity. * Depression. Time spent in discharge planning and review of plan with the patient, and nursing was 38 minutes. MD NORA Thorne/BOOKER TID: [id number] RECEIPT: [id number]
[2024-06-04 12:32] VITALS: BP 113/54; PULSE 87; RESP 16; TEMP 98.3; O2SAT 96
--- NOTE | 2024-06-04 19:39 | DVHPN2 ---
Progress Note - Dictate Date Seen: Jun 04, 2024 Medical Necessity Reason Pt with a Central, PICC or Fol: No Subjective Patient was seen and evaluated in follow up. Patient has no new complaints at this time. Patient denies any cardiac symptoms. Patient is cardiac stable for discharge. vital signs Vital Sign Date Time Temp Pulse Resp B/P (MAP) Pulse Ox O2 Delivery O2 Flow Rate FiO2 06/04/24 12:32 98.3 87 16 96 06/04/24 10:55 127/64 06/04/24 07:30 Room Air* 0 21 Total Intake and Output 06/03/24 06/03/24 06/04/24 15:00 23:00 07:00 Intake Total 850 ml 300 ml Balance 850 ml 300 ml objective GENERAL: Awake, alert, oriented. Obese. LUNGS: Clear. CARDIOVASCULAR: Heart sounds are good. ABDOMEN: Soft. laboratory and microbiology Laboratory Tests 06/03/24 06:10 Test 06/03/24 06:10 Range/Units Serum Glucose 93 74-106 mg/dL Problem List AFib with RVR. HTN. Obesity. Assessment/Plan Continued all current supportive medical care. Echocardiogram. Morphine and [place] for pain management. Amlodipine, Losartan. Aspirin, Lipitor, Metoprolol. DVT prophylactics. Additional plan as per the hospital course. Plan discussed with: Patient DORIE GALVAN MD Jun 04, 2024 19:39
--- NOTE | 2024-06-04 21:14 | DVHSR ---
APPROVED REPORT EXAM: LIMITED Two-dimensional and M-mode echocardiogram with Doppler and color Doppler. Blood Pressure: 107/57 mmHg INDICATION Atrial Fibrillation W/RVR Rule Out ACS RISK FACTORS Height: 5' 3", Weight: 187 DIMENSIONS LVDd4.3 (3.8-5.7cm)LA (2D)3.4 (1.9-4.0cm)Aortic Root (2.0-3.7cm) LVDs3.1 (2.5-4.0cm)LA (MM) (1.9-4.0cm)Aortic Cusp Exc (1.5-2.0cm) EF (%) 55.0 (55-70%)Rt. Atrium3.5 (1.9-4.0cm)Asc. Aorta cm IVSd1.1 (0.7-1.1cm)RV (D) (1.8-2.4cm) PWd1.1 (0.7-1.1cm) Mitral Valve MitralMitral Stenosis E wave0.90m/sMV Mean GR.mmHg A wave0.70m/sMV Peak GR.mmHg E/A ratio1.32D MVAcm2 Aortic Valve Aortic ValveAortic Stenosis V11.00m/Liv Mean GR.6mmHg V21.70m/Liv Peak GR.12mmHg Other Information Quality : Technically LimitedRhythm : Technically limited study due to body habitus, patient states that the test is hurting her. Conclusion MILD LVH AND MILD LV DIASTOLIC DYSFUNCTION LV EJECTION FRACTION IS 70% AORTIC SCLEROSIS NORMAL MV,TV AND PULMONIC VALVE NO EFFUSION
== END 2024-06-04 13:45 | disposition home or self-care (01) | DRG 309 ==
LOC: ER 05:43 → TELE 10:45 → TELE-CENTR 21:00
PROVIDERS: ADMIT Registered Nurse; ATTEND Internal Medicine
DX: I48.20 Chronic atrial fibrillation, unspecified (principal); D68.69 Other thrombophilia; E78.5 Hyperlipidemia, unspecified; I10 Essential (primary) hypertension; E66.9 Obesity, unspecified; F32.A Depression, unspecified; Z68.33 Body mass index [BMI] 33.0-33.9, adult; Z79.899 Other long term (current) drug therapy; Z88.1 Allergy status to other antibiotic agents; Z79.01 Long term (current) use of anticoagulants
CPT/HCPCS: 36415; 71045; 80048; 80053; 80061; 81001; 83036; 83735; 84443; 84484; 85025; 85610; 85730; 93005; 93306; 96365; 96372; 96375; 99291; G0378